=== PATIENT | female | born 1950 | race Caucasian/White ===

== ENCOUNTER 2020-10-10 19:48 | Emergency (ER) | payer MEDICARE, BC ==
[2020-10-10] MEDS ORDERED: diphenhydrAMINE 25 MG CAP ONE (20:42)
[2020-10-10 21:08] LABS: #Basophils 0.1 thou/uL (0.0-0.2); #Eosinphils 0.3 thou/uL (0.0-0.7); #Lymphocytes 1.8 thou/uL (1.20-3.40); #Monocytes 0.7 thou/uL (0.11-0.59); #Neutrophils 4.5 thou/uL (1.40-6.50); %Basophils 1.1 % (0.0-1.0); %Eosinophils 4.2 % (0.0-10.0); %Lymphocytes 24.2 % (21.0-51.0); %Monocytes 9.6 % (0.0-10.0); %Neutrophils 60.9 % (42.0-75.0); Hemoglobin 12.1 g/dL (12.0-16.0); Mean Corpuscular HGB CONC 34.4 g/dL (32.0-36.0); Mean Corpuscular Hemoglobin 34.3 pg (27.0-31.0); Mean Corpuscular Volume 99.9 fL (78.0-98.0); Mean Platelet Volume 7.5 fL (7.4-10.4); Platelet Count 226 thou/uL (130-400); RBC Distribution Width 12.3 % (11.5-14.5); Red Blood Cell (RBC) Count 3.52 mill/uL (4.20-5.40); White Blood Cell (WBC) Count 7.4 thou/uL (4.8-10.8)
[2020-10-10 21:20] LABS: INR-International Normal Ratio 0.9; PTT 29.7 sec (22.9-36.1); Prothrombin Time 12.8 sec (12.0-14.7)
[2020-10-10 21:34] LABS: ALT (SGPT) 70 U/L (8-55); AST (SGOT) 51 U/L (5-34); Alkaline Phosphatase 87 U/L (40-110); Anion Gap 14 mmol/L (10-20); BUN (Urea Nitrogen) 12 mg/dL (9.8-20.1); Bilirubin, Total 0.3 mg/dL (0.2-1.2); CK (CPK) 104 U/L (29-168); Calc. Creatinine Clearance 0 mL/min (70-130); Calcium 8.3 mg/dL (7.8-10.44); Carbon Dioxide 20 mmol/L (23-31); Chloride 111 mmol/L (98-107); Globulin 2.3 g/dL (2.4-3.5); Glucose 93 mg/dL (83-110); Potassium 4.1 mmol/L (3.5-5.1); Protein, Total 6.3 g/dL (5.8-8.1); Sodium 141 mmol/L (136-145)
== END 2020-10-10 22:25 | disposition home or self-care (01) ==
LOC: ERS 19:48
DX: M25.475 Effusion, left foot (principal); I25.2 Old myocardial infarction; E78.5 Hyperlipidemia, unspecified; M79.605 Pain in left leg
CPT/HCPCS: 36415; 80053; 82550; 85025; 85384; 85610; 85730; Q0163